=== PATIENT | female | born 1965 | race Caucasian/White ===

== ENCOUNTER 2016-12-12 13:10 | Emergency (ER) | payer OTHER ==
[2016-12-12 13:50] LABS: BLOOD UREA NITROGEN 26 mg/dL (7-18); CALCIUM 9.4 mg/dL (8.7-10.7); CARBON DIOXIDE 24 mmol/L (21-32); GLUCOSE,RANDOM 197 mg/dL (70-99); SODIUM 142 mmol/L (136-145)
== END 2016-12-12 14:26 | disposition home or self-care (01) ==
LOC: ER 13:10
PROVIDERS: Internal Medicine
DX: H65.90 Unspecified nonsuppurative otitis media, unspecified ear (principal); E07.9 Disorder of thyroid, unspecified; E11.9 Type 2 diabetes mellitus without complications; I10 Essential (primary) hypertension; Z79.899 Other long term (current) drug therapy; Z88.1 Allergy status to other antibiotic agents
CPT/HCPCS: 36415; 80048; 82009; 99282